=== PATIENT | male | born 1970 | race Caucasian/White ===

== ENCOUNTER → 2017-01-10 | Outpatient (CLI) | payer BC ==
--- NOTE | 2017-01-10 12:29 | REP ---
Chest two views HISTORY: Cough Comparison: None The lungs are clear. The heart is normal in size. The pulmonary vasculature is normal in appearance. The bony structure is intact. IMPRESSION: No acute disease.
== END ==
LOC: M CLY 11:33
PROVIDERS: ATTEND Family Medicine
DX: R05 Cough (principal)

== ENCOUNTER → 2017-04-13 | Outpatient (REF) | payer BC ==
[~2017-04-13] MED LIST: LOSA50TA21 PO
[2017-04-18 00:06] LABS: BLASTOMYCES ANTIBODY LEVEL Negative (Neg:<1:1); CRYPTOCOCCUS ANTIGEN SER Negative (Negative); HISTOPLASMOSIS ANTIBODY Negative (Neg:<1:1); SJOGREN'S ANTI SS-A <0.2 AI (0.0-0.9); SJOGREN'S ANTI SS-B <0.2 AI (0.0-0.9)
== END ==
LOC: M LAB REF 13:30
PROVIDERS: ATTEND Internal Medicine Pulmonary Disease
DX: R05 Cough (principal); R91.8 Other nonspecific abnormal finding of lung field

== ENCOUNTER → 2017-04-20 | Outpatient (CLI) | payer BC ==
[~2017-04-20] VITALS: Ht 179.1 cm; Wt 89.4 kg
[~2017-04-20] MED LIST changes: +ACETYLCYSTEINE 20% 30 ML VIAL As Ordered ONE; +ALBUTEROL SULFATE 2.5 MG/0.5 ML INH NEB SOLN INH ONE; +D5W 1,000 ML IV SCH; +EPINEPHrine 1MG/10ML SYRINGE 1.5IN As Ordered ONE; +LIDOCAINE 1% MDV 20ML VIAL As Ordered ONE; +LIDOCAINE 4% INJ 5 ML AMP As Ordered ONE; +LIDOCAINE 4% INJ 5 ML AMP NEB ONE; +LIDOCAINE VISCOUS 2% SOLN 15ML UDC As Ordered ONE; +MIDAZOLAM INJ 2 MG/2 ML VIAL (J2250) As Ordered ONE; +THROMBIN SOLN 5,000 UNITS VIAL As Ordered ONE; +ceFAZolin 1GM INJ (J0690) As Ordered ONE; +fentaNYL 100 MCG/2 ML INJECTION (J3010) As Ordered ONE
--- NOTE | 2017-04-20 09:07 | REP ---
Portable chest x-ray: Sitting AP view. History: Post bronchoscopy. Question pneumothorax. Comparison study: January 10, 2017. Findings: There is a small left-sided pneumothorax with a 1.6 cm collection of left apical pleural air. Oxygen delivery tubing and EKG monitoring electrodes are seen. The lungs are otherwise clear. Heart is not enlarged. Pulmonary vasculature is not increased. Impression: Small left-sided pneumothorax. Signed by Bassam Mahoney MD 04/20/2017 10:18 A
--- NOTE | 2017-04-20 09:17 | RO ---
DATE OF PROCEDURE: 04/20/2017 PREOPERATIVE DIAGNOSIS: Abnormal chest CT scan associated with weight loss and shortness of breath. POSTOPERATIVE DIAGNOSIS: Abnormal chest CT scan associated with weight loss and shortness of breath. OPERATIVE PROCEDURE: Bronchoscopy. SURGEON: Anthony Morrison MD METAL HANGER: ANESTHESIA: PROCEDURE NOTE: Procedure explained and consent obtained. He was placed on telemetry, continuous oximetry, and had frequent blood pressure elevations. He had CO2 monitoring. He was placed prophylactically on 2 liters of oxygen that was increased to 5 liters early in the procedure. Saturation alycia was 89%. [place] procedure was followed. Sedation was achieved with 4 mg of Versed and 50 mcg of Fentanyl. After 4% lidocaine, the right naris was topically anesthetized. Following this , the bronchoscope was introduced to the level of the vocal cords. Vocal cords were normal in appearance and moved well. After topical anesthetization, the bronchoscope was introduced into trachea, both the left and right lungs were observed. There was normal anatomy and normal appearing mucosa. There was a moderate amount of thin clear secretions which was evacuated. Following this, the bronchoscope was introduced into the lingula. Under fluoroscopic guidance, five transbronchial samples were obtained. Following this, the bronchoscope with moved to the left upper lobe. Again under fluoroscopic guidance, three transbronchial samples were taken. At that point, there appeared to be a pneumothorax on fluoroscopy and the procedure was terminated after assuring visual hemostasis. There has been no change in his oxygen saturation. He was increased to 9 liters of oxygen because of presumed pneumothorax while chest x-ray is pending. It should be noted that he snored through the procedure and his respirations were suggestive of sleep apnea. FINDINGS: 1. Moderate amount of thin clear secretions. SPECIMENS: Eight transbronchial biopsies from the left upper lobe (combined left upper lobe and lingula) sent to pathology. [facility]
--- NOTE | 2017-04-20 11:49 | REP ---
PORTABLE CHEST X-RAY: Single view 11:05 a.m. on April 20, 2017. COMPARISON STUDY: 8:48 a.m. on April 20, 2020 17. HISTORY: Followup pneumothorax. FINDINGS: A small left-sided pneumothorax is again seen unchanged in size from the study done 1 hour of 15 minutes earlier on the same date. No new infiltrate is seen. Cardiomediastinal silhouette is unremarkable. IMPRESSION: Small left-sided pneumothorax unchanged. Signed by Bassam Mahoney MD 04/20/2017 03:07 P
[2017-04-20 11:54] VITALS: BP 150/94
== END | disposition home or self-care (01) ==
LOC: M OPP 07:05
PROVIDERS: ATTEND Internal Medicine Pulmonary Disease
DX: J98.4 Other disorders of lung (principal); J93.9 Pneumothorax, unspecified; R63.4 Abnormal weight loss; R06.02 Shortness of breath; I10 Essential (primary) hypertension; K21.9 Gastro-esophageal reflux disease without esophagitis; F17.228 Nicotine dependence, chewing tobacco, with other nicotine-induced disorders; R06.83 Snoring; Z88.0 Allergy status to penicillin
CPT/HCPCS: 31628; 31632; 71010; 76000; 88305; 94640; J2250; J3010

== ENCOUNTER → 2017-04-21 | Outpatient (CLI) | payer BC ==
[~2017-04-21] MED LIST changes: -ACETYLCYSTEINE 20% 30 ML VIAL As Ordered ONE; -ALBUTEROL SULFATE 2.5 MG/0.5 ML INH NEB SOLN INH ONE; -D5W 1,000 ML IV SCH; -EPINEPHrine 1MG/10ML SYRINGE 1.5IN As Ordered ONE; -LIDOCAINE 1% MDV 20ML VIAL As Ordered ONE; -LIDOCAINE 4% INJ 5 ML AMP As Ordered ONE; -LIDOCAINE 4% INJ 5 ML AMP NEB ONE; -LIDOCAINE VISCOUS 2% SOLN 15ML UDC As Ordered ONE; -MIDAZOLAM INJ 2 MG/2 ML VIAL (J2250) As Ordered ONE; -THROMBIN SOLN 5,000 UNITS VIAL As Ordered ONE; -ceFAZolin 1GM INJ (J0690) As Ordered ONE; -fentaNYL 100 MCG/2 ML INJECTION (J3010) As Ordered ONE
--- NOTE | 2017-04-21 09:55 | REP ---
Chest two views HISTORY: Pneumothorax Comparison: 04/20/2017 A small left pneumothorax is present and is decreased in size compared to the previous study. The lungs are clear. The heart is normal in size. The pulmonary vasculature is normal in appearance. The bony structure is intact. IMPRESSION: Small left pneumothorax decreased in size compared to the previous study. Signed by Al Rogers MD 04/21/2017 09:46 A
--- NOTE | 2017-04-21 13:31 | IPN ---
DATE: 04/21/2017 Mr. Lee had a bronchoscopy done yesterday, which showed a small left sided pneumothorax following the procedure. He was placed on high flow oxygen and recovery was done in the postanesthesia care unit. He had a repeat chest x-ray two hours later that did not show any significant change in the pneumothorax. He had no shortness of breath, no chest pain, or other concern. He was then transferred to the recovery room in endoscopy, where his oxygen was weaned off and he was discharged. He was instructed to return to the emergency department should he develop chest pain, shortness of breath or otherwise feel unwell. He was also instructed to return in the morning for a two-view chest x-ray. He was also instructed that he could not work until he was seen in the pulmonary clinic again. He was also advised not to do any strenuous activity or lifting. Mr. Lee returned this morning for a two-view chest x-ray, which showed a decrease in size in the left sided pneumothorax. Instructions were reiterated and to not lift any heavy items and to go to the emergency department should he develop shortness of breath, chest pain, or other. He had been instructed yesterday to stay out of work and that will be readdressed at his followup visit next week. He will have a two-view chest x-ray done at that time.
== END ==
LOC: M SMT 09:32
PROVIDERS: ATTEND Internal Medicine Pulmonary Disease
DX: J95.811 Postprocedural pneumothorax (principal)

== ENCOUNTER → 2017-04-26 | Outpatient (CLI) | payer BC ==
--- NOTE | 2017-04-27 03:37 | REP ---
Clinical: Postoperative assessment for pneumothorax. Comparison: 04/21/2017. Technique: PA and lateral. Findings: Previously identified left apical pneumothorax has resolved. Mediastinum and cardiac silhouette are relatively normal. Mild left hilar prominence cannot be excluded but remains stable. Lung cooley are clear without acute consolidation, effusion, or obvious pneumothorax. Skeletal structures are intact. Impression: Previous left apical pneumothorax resolved. Subtle left hilar prominence again noted and unchanged. Signed by Erick Zapata MD 04/27/2017 03:29 A
== END ==
LOC: M SMT 13:50
PROVIDERS: ATTEND Internal Medicine Pulmonary Disease
DX: J95.811 Postprocedural pneumothorax (principal)

== ENCOUNTER → 2017-07-06 | Outpatient (REF) | payer BC ==
[~2017-07-06] MED LIST changes: -LOSA50TA21 PO; +LOSA50TA5 PO
== END ==
LOC: M LAB REF 09:19
PROVIDERS: ATTEND Internal Medicine Pulmonary Disease
DX: R91.8 Other nonspecific abnormal finding of lung field (principal); R06.00 Dyspnea, unspecified

== ENCOUNTER → 2017-08-08 | Outpatient (REF) | payer BC ==
[2017-08-08 12:32] LABS: ALBUMIN 3.8 GM/DL (3.2-5.2); ALBUMIN/GLOBULIN RATIO 1.23 (1.00-1.93); ALKALINE PHOSPHATASE 53 U/L (45-117); ALT/SGPT 90 U/L (12-78); ANION GAP 10 MEQ/L (8-16); AST/SGOT 33 U/L (15-37); BILIRUBIN,TOTAL 0.5 MG/DL (0.2-1.0); BLOOD UREA NITROGEN 21 MG/DL (7-18); CALCIUM LEVEL 8.9 MG/DL (8.5-10.1); CARBON DIOXIDE LEVEL 28 MEQ/L (21-32); CHLORIDE LEVEL 99 MEQ/L (98-107); CREATININE FOR GFR 0.93 MG/DL (0.70-1.30); GLOMERULAR FILTRATION RATE > 60.0 (>60); GLUCOSE, FASTING 161 MG/DL (70-105); POTASSIUM SERUM 3.5 MEQ/L (3.5-5.1); SODIUM LEVEL 137 MEQ/L (136-145); TOTAL PROTEIN 6.9 GM/DL (6.4-8.2)
== END ==
LOC: M SFHCCLAY 08:00
PROVIDERS: ATTEND Family Medicine
DX: R73.01 Impaired fasting glucose (principal)

== ENCOUNTER → 2017-11-16 | Outpatient (CLI) | payer BC | LOC: M CLY 12:22 | DX: J40 Bronchitis, not specified as acute or chronic (principal) | CPT/HCPCS: 71046 ==

== ENCOUNTER → 2018-02-27 | Outpatient (REF) | payer BC ==
[2018-02-27 11:45] LABS: ALBUMIN 3.6 GM/DL (3.2-5.2); ALBUMIN/GLOBULIN RATIO 1.13 (1.00-1.93); ALKALINE PHOSPHATASE 95 U/L (45-117); ALT/SGPT 69 U/L (12-78); ANION GAP 8 MEQ/L (8-16); AST/SGOT 36 U/L (7-37); BILIRUBIN,TOTAL 0.5 MG/DL (0.2-1.0); BLOOD UREA NITROGEN 12 MG/DL (7-18); CALCIUM LEVEL 8.6 MG/DL (8.5-10.1); CARBON DIOXIDE LEVEL 27 MEQ/L (21-32); CHLORIDE LEVEL 104 MEQ/L (98-107); CHOLESTEROL LEVEL 177 MG/DL (<200); CHOLESTEROL RISK RATIO 3.765 (<5); CREATININE FOR GFR 1.04 MG/DL (0.70-1.30); GLOMERULAR FILTRATION RATE > 60.0 (>60); GLUCOSE, FASTING 120 MG/DL (70-100); HDL CHOLESTEROL 47 MG/DL (>40); LDL CHOLESTEROL 103.4 MG/DL (<100); NON-HDL-C 130 MG/DL; POTASSIUM SERUM 3.6 MEQ/L (3.5-5.1); SODIUM LEVEL 139 MEQ/L (136-145); TOTAL PROTEIN 6.8 GM/DL (6.4-8.2); TRIGLYCERIDES LEVEL 133 MG/DL (<150)
[2018-02-27 11:54] LABS: ESTIMATED AVERAGE GLUCOSE 117 MG/DL (60-110); HEMOGLOBIN A1c 5.7 %
== END ==
LOC: M SFHCCLAY 07:14
DX: I10 Essential (primary) hypertension (principal); R73.01 Impaired fasting glucose; E78.5 Hyperlipidemia, unspecified; E03.9 Hypothyroidism, unspecified
CPT/HCPCS: 84443

== ENCOUNTER → 2018-03-07 | Outpatient (CLI) | payer BC | LOC: M CLY 07:58 | DX: R93.7 Abnormal findings on diagnostic imaging of other parts of musculoskeletal system (principal) | CPT/HCPCS: 73030 ==

== ENCOUNTER → 2018-08-28 | Outpatient (REF) | payer BC ==
[2018-08-29 11:53] LABS: BASO # 0.1 10^3/uL (0.0-0.2); BASO % 1.4 % (0.0-1.0); EOS # 0.1 10^3/uL (0.0-0.50); EOS % 1.5 % (0.0-3.0); HEMATOCRIT 45.1 % (42.0-52.0); HEMOGLOBIN 15.6 g/dl (13.5-17.5); IMMATURE GRANULOCYTE % 0.4 % (0-3.0); LYMPH # 1.4 10^3/uL (1.5-4.5); LYMPH % 17.5 % (24.0-44.0); MEAN CORPUSCULAR HEMOGLOBIN 29.6 pg (27.0-33.0); MEAN CORPUSCULAR HGB CONC 34.6 g/dl (32.0-36.5); MEAN CORPUSCULAR VOLUME 85.6 fl (80.0-96.0); MONO % 12.8 % (0.0-5.0); NEUTROPHILS # 5.3 10^3/uL (1.8-7.7); NEUTROPHILS % 66.4 % (36.0-66.0); PLATELET COUNT, AUTOMATED 293 10^3/uL (150-450); RED BLOOD COUNT 5.27 10^6/uL (4.30-6.10); RED CELL DISTRIBUTION WIDTH 12.6 % (11.5-14.5)
[2018-08-29 12:29] LABS: ALBUMIN 4.1 GM/DL (3.2-5.2); ALBUMIN/GLOBULIN RATIO 1.17 (1.00-1.93); ALKALINE PHOSPHATASE 94 U/L (45-117); ALT/SGPT 79 U/L (12-78); ANION GAP 12 MEQ/L (8-16); AST/SGOT 42 U/L (7-37); BILIRUBIN,TOTAL 0.6 MG/DL (0.2-1.0); BLOOD UREA NITROGEN 14 MG/DL (7-18); CARBON DIOXIDE LEVEL 25 MEQ/L (21-32); CHLORIDE LEVEL 101 MEQ/L (98-107); CREATININE FOR GFR 0.91 MG/DL (0.70-1.30); GLOMERULAR FILTRATION RATE > 60.0 (>56); GLUCOSE, FASTING 87 MG/DL (70-100); POTASSIUM SERUM 3.8 MEQ/L (3.5-5.1); SODIUM LEVEL 138 MEQ/L (136-145); TOTAL PROTEIN 7.6 GM/DL (6.4-8.2)
[2018-08-29 13:24] LABS: ESTIMATED AVERAGE GLUCOSE 120 MG/DL (60-110); HEMOGLOBIN A1c 5.8 %
== END ==
LOC: M SFHCCLAY 15:46
DX: R06.02 Shortness of breath (principal); I10 Essential (primary) hypertension; R73.01 Impaired fasting glucose; E03.9 Hypothyroidism, unspecified

== ENCOUNTER → 2018-08-28 | Outpatient (CLI) | payer BC | LOC: M CLY 15:56 | DX: M25.561 Pain in right knee (principal) | CPT/HCPCS: 73564 ==

== ENCOUNTER → 2018-11-15 | Outpatient (REF) | payer BC | LOC: M LAB REF 17:10 | PROVIDERS: ATTEND Internal Medicine Pulmonary Disease | DX: R91.8 Other nonspecific abnormal finding of lung field (principal) ==

== ENCOUNTER → 2019-05-27 | Outpatient (REF) | payer BC | LOC: M SFHCCLAY 16:24 | PROVIDERS: ATTEND Family Medicine | DX: I10 Essential (primary) hypertension (principal); R73.01 Impaired fasting glucose; E03.9 Hypothyroidism, unspecified; F52.21 Male erectile disorder; Z53.9 Procedure and treatment not carried out, unspecified reason ==

== ENCOUNTER → 2019-12-02 | Outpatient (REF) | payer BC ==
[2019-12-03 11:44] LABS: BASO # 0.1 10^3/uL (0.0-0.2); BASO % 1.5 % (0.0-1.0); EOS # 0.1 10^3/uL (0.0-0.5); EOS % 1.8 % (0.0-3.0); HEMATOCRIT 43.5 % (42.0-52.0); HEMOGLOBIN 14.9 g/dl (13.5-17.5); LYMPH # 1.1 10^3/uL (1.5-5.0); LYMPH % 17.4 % (24.0-44.0); MEAN CORPUSCULAR HEMOGLOBIN 29.4 pg (27.0-33.0); MEAN CORPUSCULAR HGB CONC 34.3 g/dl (32.0-36.5); MEAN CORPUSCULAR VOLUME 85.8 fl (80.0-96.0); MONO % 15.5 % (0.0-5.0); NEUTROPHILS # 3.9 10^3/uL (1.5-8.5); NEUTROPHILS % 63.2 % (36.0-66.0); PLATELET COUNT, AUTOMATED 256 10^3/uL (150-450); RED BLOOD COUNT 5.07 10^6/uL (4.30-6.10); WHITE BLOOD COUNT 6.2 10^3/uL (4.0-10.0)
[2019-12-03 12:14] LABS: ALBUMIN 4.1 GM/DL (3.2-5.2); ALT/SGPT 103 U/L (12-78); BILIRUBIN,TOTAL 0.4 MG/DL (0.2-1.0); BLOOD UREA NITROGEN 12 MG/DL (7-18); C REACTIVE PROTEIN QUANTITATIV 0.67 MG/DL (0.00-0.30); CALCIUM LEVEL 9.1 MG/DL (8.5-10.1); CARBON DIOXIDE LEVEL 25 MEQ/L (21-32); CHLORIDE LEVEL 103 MEQ/L (98-107); CREATININE FOR GFR 1.08 MG/DL (0.70-1.30); GLOMERULAR FILTRATION RATE > 60.0 (>56); GLUCOSE, FASTING 93 MG/DL (70-100); POTASSIUM SERUM 3.8 MEQ/L (3.5-5.1); SODIUM LEVEL 139 MEQ/L (136-145); TOTAL PROTEIN 7.5 GM/DL (6.4-8.2); URIC ACID 4.2 MG/DL (3.5-7.2)
[2019-12-03 16:36] LABS: HEMOGLOBIN A1c 6.3 %
[2019-12-05 00:07] LABS: ANA (HEP2) Negative (.); CYCLIC CITRULLINATED PEPTIDE 8 units (0-19); Lyme Disease IgG/IgM Antibodie <0.91 ISR (0.00-0.90); Lyme Disease IgM Ab Quantitati <0.80 index (0.00-0.79)
== END ==
LOC: M SFHCCLAY 15:52
PROVIDERS: ATTEND Family Medicine
DX: I10 Essential (primary) hypertension (principal); R21 Rash and other nonspecific skin eruption; M25.461 Effusion, right knee; M25.561 Pain in right knee; E03.9 Hypothyroidism, unspecified; R73.01 Impaired fasting glucose

== ENCOUNTER → 2019-12-12 | Outpatient (CLI) | payer BC ==
--- NOTE | 2019-12-12 20:42 | REP ---
MRI RIGHT KNEE: TECHNIQUE: Axial proton density fat saturation, sagittal proton density T2 STIR, water excitation, coronal proton density, proton density fat saturation. There is a complex tear of the body of the medial meniscus. This extends peripherally into the anterior and posterior horns. At the anterior peripheral margin of the anterior horn of the medial meniscus a complex septated cystic structure extends superiorly compatible with a meniscal cyst. Multiple internal septations are present. This extends for a craniocaudal length of about 3 cm and has a thickness maximally of about 6 mm. The lateral meniscus is intact. The cruciate and lateral collateral ligaments are intact. The medial collateral ligament demonstrates thinning and increased surrounding signal on T2-weighted images compatible with chronic sprain or partial tear. Extensor mechanism is intact. Medial and lateral patellar retinacula are intact. There is mild diffuse chondromalacia of the lateral patellar facet. There is a more moderate degree of chondromalacia of the medial patellar facet superiorly with some mild subchondral marrow edema. There is moderate chondromalacia in the medial femoral notch with mild global chondromalacia elsewhere along the medial femoral condyles and tibial plateaus. There is mild marrow edema posteriorly in the medial tibial plateau. There is mild diffuse joint effusion. Mild fluid is seen along the posterior aspect of the proximal tibiofibular articulation. There is no popliteal cyst. IMPRESSION: Complex tear body of medial meniscus extending into the anterior and posterior horns. Associated complex meniscal cyst extends from the anterior peripheral aspect of the anterior horn of the medial meniscus extending cephalad 3 cm. This has a thickness of about 6 mm. Increased signal on T2-weighted images involving the medial collateral ligament having the appearance of a chronic sprain or partial tear. Diffuse chondromalacia as discussed in detail above. Mild joint effusion. Electronically Signed by Pedrito Martinez MD 12/13/2019 12:49 P
== END ==
LOC: M RAD 17:58
PROVIDERS: ATTEND Family Medicine
DX: S83.241A Other tear of medial meniscus, current injury, right knee, initial encounter (principal); Y92.9 Unspecified place or not applicable; Y93.9 Activity, unspecified; Y99.9 Unspecified external cause status

== ENCOUNTER → 2020-05-19 | Outpatient (REF) | payer BC ==
[2020-05-20 12:10] LABS: ALT/SGPT 118 U/L (12-78); BILIRUBIN,TOTAL 0.7 MG/DL (0.2-1.0); BLOOD UREA NITROGEN 13 MG/DL (7-18); CALCIUM LEVEL 9.1 MG/DL (8.5-10.1); CARBON DIOXIDE LEVEL 25 MEQ/L (21-32); CHLORIDE LEVEL 99 MEQ/L (98-107); CHOLESTEROL LEVEL 235 MG/DL (<200); CHOLESTEROL RISK RATIO 5.465 (<5); CREATININE FOR GFR 1.22 MG/DL (0.70-1.30); GLOMERULAR FILTRATION RATE > 60.0 (>56); GLUCOSE, FASTING 124 MG/DL (70-100); HDL CHOLESTEROL 43 MG/DL (>40); NON-HDL-C 192 MG/DL; POTASSIUM SERUM 3.7 MEQ/L (3.5-5.1); SODIUM LEVEL 135 MEQ/L (136-145); TOTAL PROTEIN 7.7 GM/DL (6.4-8.2); TRIGLYCERIDES LEVEL 457 MG/DL (<150)
[2020-05-20 13:05] LABS: HEMOGLOBIN A1c 6.6 %
== END ==
LOC: M SFHCCLAY 15:01
PROVIDERS: ATTEND Family Medicine
DX: R73.01 Impaired fasting glucose (principal); I10 Essential (primary) hypertension; E03.9 Hypothyroidism, unspecified